=== PATIENT | female | born 1955 | race Caucasian/White ===

== ENCOUNTER 2020-08-28 06:50 | Day surgery (SDC) | payer OTHER ==
[~2020-08-28] VITALS: Ht 157.5 cm; Wt 58.1 kg
[2020-08-28] MEDS ORDERED: fentaNYL citrate 0.05 MG/ML VIAL ONE (08:57)
[2020-08-28] MEDS ORDERED: MIDAZOLAM 5 MG/5 ML VIAL ONE (08:58)
[2020-08-28] MEDS ORDERED: MIDAZOLAM 2 MG/2 ML VIAL IVP ONE (09:20)
== END 2020-08-28 09:55 | disposition home or self-care (01) ==
LOC: MDS 06:50 → MMU 06:51 → MDS 09:55
PROVIDERS: ATTEND Internal Medicine Gastroenterology
DX: R13.10 Dysphagia, unspecified (principal); K21.00 Gastro-esophageal reflux disease with esophagitis, without bleeding; K44.9 Diaphragmatic hernia without obstruction or gangrene; K22.2 Esophageal obstruction; I10 Essential (primary) hypertension; E78.5 Hyperlipidemia, unspecified; E11.9 Type 2 diabetes mellitus without complications; Z87.891 Personal history of nicotine dependence; Z88.0 Allergy status to penicillin; Z79.82 Long term (current) use of aspirin; Z79.899 Other long term (current) drug therapy
CPT/HCPCS: J2250; J3010